=== PATIENT | female | born 1975 | race Caucasian/White ===

== ENCOUNTER 2025-05-20 14:59 | Outpatient (CLI) | payer BC, SELFPAY ==
[2025-05-20 16:25] LABS: Thyroid Stimulating Hormone Reflex 1.270 uIU/mL (0.465-4.68)
[2025-05-24 15:08] LABS: Estrogens, Total 47 pg/mL (.)
[2025-05-26 12:08] LABS: Free Testosterone (Direct) 0.3 pg/mL (0.0-4.2)
== END 2025-05-20 15:00 | disposition home or self-care (01) ==
LOC: ANHLAB 15:00
PROVIDERS: Visit Provider Obstetrics & Gynecology
DX: N95.1 Menopausal and female climacteric states (principal)
CPT/HCPCS: 36415; 82672; 84402; 84403; 84443